=== PATIENT | female | born 1955 | race Caucasian/White ===

== ENCOUNTER 2020-10-07 09:31 | Inpatient (IN) | payer MEDICARE, OTHER ==
[~2020-10-07] VITALS: Ht 162.6 cm; Wt 127.2 kg
[2020-10-07] MEDS ORDERED: VITAMIN B-121000 MCG PO (10:07)
[2020-10-07] MEDS ORDERED: LEVOTHYROXINE25 MCG PO (10:07)
[2020-10-07] MEDS ORDERED: CERTAVITE SR-A1 EACH PO (10:08)
[2020-10-07] MEDS ORDERED: LISINOPRIL20 MG PO (10:08)
[2020-10-07] MEDS ORDERED: VITAMIN D-40010 MCG PO (10:09)
[2020-10-07] MEDS ORDERED: [UNRECOGNIZED DRUG - OTHER] TOP (10:10)
[2020-10-07] MEDS ORDERED: CLOZAPINE25 MG PO (10:10)
[2020-10-07] MEDS ORDERED: ATENOLOL50 MG PO (10:10)
[2020-10-07] MEDS ORDERED: GEMFIBROZIL600 MG PO (10:11)
[2020-10-07] MEDS ORDERED: METFORMIN HCL1000 MG PO (10:12)
[2020-10-07] MEDS ORDERED: NON-ASPIRIN PA325 MG PO (10:12)
[2020-10-07] MEDS ORDERED: VENTOLIN HFA18 GM INH (10:12)
[2020-10-07] MEDS ORDERED: METAMUCIL660 GM PO (10:12)
[2020-10-07] MEDS ORDERED: MILK OF MA400 MG/5 M PO (10:12)
[2020-10-07] MEDS ORDERED: TRIAMCINOLONE A15 G1 TOP (10:13)
[2020-10-07] MEDS ORDERED: GERI-KOT8.6 MG PO (10:13)
[2020-10-07] MEDS ORDERED: SYMBICORT 16010.2 GM INH (10:14)
[2020-10-07] MEDS ORDERED: BANOPHEN50 MG PO (10:14)
--- NOTE | 2020-10-07 15:37 | NUR ---
PT ARRIVED TO FLOOR VIA STRETCHER. PT ABLE TO TRANSFER TO BED INDEPENDENTLY. VITALS TAKEN AND STABLE. PT ON 2L NC. RR 18. SKIN ASSESSMENT COMPLETED. NO SKIN BREAKDOWN NOTED. FLORENCE ARE IS SLIGHTLY READ BUT VERY CLEAN. PT CAME IN WITH BLAYNE TO [facility]. TEDHOSE REMOVED TO ASSESS SKIN. TRACE EDEMA NOTED. LUNGS DIM AND DISTANT. HEART SOUNDS REGULAR. FACILITY PRACTICE SPECIALIST AT BEDSIDE. NS AT 75ML/HR STARTED. ORIENTED TO ROOM AND LATE LUNCH ORDERED. CALL LIGHT IN REACH. DENIES NEEDS.
--- NOTE | 2020-10-07 18:17 | NUR ---
ROUNDED ON PT. PT IN BED. 2L NC IN PLACE. CAREGIVER AT BEDSIDE. FLORENTIN YUNG FROM PTS HOME CALLED FOR UPDATE. PHONE NUMBER [phone] UPDATE PROVIDED ON PNEUMONIA, PLAN FOR TREATMENT AND PT CONDITION.
--- NOTE | 2020-10-07 23:09 | NUR ---
IN TO CHECK TELE LEADS, ALL IN PLACE AT THIS TIME, PT ASKING FOR PAIN RELIEF, RN INFORMED
--- NOTE | 2020-10-07 23:28 | NUR ---
Teesalon arcenio 100mg po and tylenol 650mg po admin for reports of cough/ pain.
--- NOTE | 2020-10-08 04:00 | NUR ---
Patient resting, respirations even and non labored. CPAP INTACT. Patient has no distress. Personal supplies and call light within reach.
--- NOTE | 2020-10-08 04:58 | NUR ---
Patient resting, eyes closed, respirations even and non labored. CPAP intact with 2L oxygen. Patient has no notable distress. Patient's facility sitter at bedside. No needs at this time.
--- NOTE | 2020-10-08 08:30 | NUR ---
REPORT RECEIVED FROM NIGHT RN AND PT. CARE RESUMED. PT. IS DROWSY, BUT EASILY AROUSED AND ORIENTED. SHE HAS A PRODUCTIVE COUGH. EXP. WHEEZES THROUGHOUT LUNGS. TRACE EDEMA PRESENT BLE. IV SITE WNL AND FLUSHES WELL. PT. LEFT RESTING WITH CALL LIGHT IN REACH.
--- NOTE | 2020-10-08 09:25 | NUR ---
Telemetry alarming asystole. Upon entering room, patient sitting on edge of bed, alert and oriented. 2 telemetry leads disconnected. Telemetry leads reapplied. Denies further needs at this time. PT in room to work with patient.
--- NOTE | 2020-10-08 09:38 | NUR ---
PT HAD A ORDER FOR OUTSIDE COVID TESTING , SHE HAD TESTING YESTERDAY AND IS CURRENTLY INPATIENT
[2020-10-08] MEDS ORDERED: FISH OIL 1,0001 EAC2 PO (10:02)
[2020-10-08] MEDS ORDERED: DOCUSATE SODIU250 MG PO (10:05)
[2020-10-08] MEDS ORDERED: NYSTATIN15 GM TOP (10:20)
--- NOTE | 2020-10-08 10:20 | NUR ---
Spoke with Gloria and her cg from the [facility]. She resides there and is able to walk down the hill for therapy. Other care such as meals and housekeeping is provided for Gloria. Pt plans on returning to the [facility] on discharge. Nursing phone number: [phone] CG with pt is
[2020-10-08] MEDS ORDERED: ICY HOT CREAM35.4 GM TOP (10:32)
[2020-10-08] MEDS ORDERED: MAALOX ADVANCE355 ML PO (10:35)
[2020-10-08] MEDS ORDERED: GOLD BOND MEDI113 G2 TOP (10:37)
[2020-10-08] MEDS ORDERED: HALLS3.2 MG MM (10:39)
[2020-10-08] MEDS ORDERED: EAR WAX REMOVAL15 ML OTIC (10:42)
[2020-10-08] MEDS ORDERED: IBU-200200 MG PO (10:44)
[2020-10-08] MEDS ORDERED: GERI-TUSSI100 MG/5 M PO (10:48)
--- NOTE | 2020-10-08 10:48 | NUR ---
MED REC COMPLETE
--- NOTE | 2020-10-08 12:45 | NUR ---
ROUNDING ON PT. SHE IS SLEEPING AT THIS TIME AND BREATHING IS UNLABORED. DAVI CARD STAFF PERSON IN THE ROOM.
--- NOTE | 2020-10-08 16:16 | NUR ---
PT. USED CALL LIGHT APPROPRIATELY FOR BEEPING IV. ABX COMPLETED AND IVF RESTARTED. PT. GIVEN FRESH WATER AND LEFT RESTING WITH CAREGIVER AT BEDSIDE.
--- NOTE | 2020-10-08 18:12 | NUR ---
02 TITRATED TO 1L NC. IVF DC'D PER ORDER. SBA TO BATHROOM. PT. TOLERATED WELL.
--- NOTE | 2020-10-08 18:40 | NUR ---
PT ASSISTED WITH SETTING UP FOR SHOWER. DISCUSSED SAFETY AND GIVEN A SHOWER CHAIR. CAREGIVER ASSISTING WITH SHOWER.
--- NOTE | 2020-10-08 19:20 | NUR ---
RECEIVED REPORT FROM AGA JONES. pt RESTING IN BED. MAGNETOMETER OPERATOR AT BEDSIDE. WHITEBOARD UPDATED. NO REQUESTS AT THIS TIME. CALL LIGHT WITHIN REACH.
--- NOTE | 2020-10-08 21:00 | NUR ---
HEALTH CARE RECRUITER IN ROOM TO DO VITALS.
--- NOTE | 2020-10-08 22:02 | NUR ---
IN TO DO ASSESSMENT. pt RESTING IN BED, PRONED. REPORTED A COUGH, PRN GIVEN WITH SCHEDULED MEDICATION. HOME CPAP IN PLACE. CAREGIVER AT BEDSIDE. ASSESSMENT DONE. CALL LIGHT WITHIN REACH.
--- NOTE | 2020-10-09 00:42 | NUR ---
ROUNDED ON pt. PRONING WITH HOME CPAP IN PLACE, SPOT CHECKED O2 LEVEL HIGH 80'S. CALLED RT ADAPTER FOR CPAP PLACED, 1L BLEED IN, SAT NOW MID 90'S. CALL LIGHT WITHIN REACH. CAREGIVER AT BEDSIDE. pt UP TO VOID. INCONT OF STOOL, LIQUID. CLEANED AND BACK TO BED.
--- NOTE | 2020-10-09 03:50 | NUR ---
CAREGIVERS CHANGED OUT. pt CONTINUES TO PRONE WITH CPAP IN PLACE. CALL LIGHT WITHIN REACH. CAREGIVER AT BEDSIDE.
--- NOTE | 2020-10-09 06:54 | NUR ---
WOKE pt FOR ASSESSMENT. ON 1.5L O2 VIA CPAP SATS MID 90'S. ASSESSMENT UNCHANGED. CAREGIVER AT BEDSIDE. CALL LIGHT WITHIN REACH.
--- NOTE | 2020-10-09 08:30 | NUR ---
Per [id number] meeting pt will dc to [facility] today.
--- NOTE | 2020-10-09 09:00 | NUR ---
REPORT RECEIVED FROM NIGHT RN AND PT. CARE RESUMED. PT. IS DROWSY BUT EASILY AROUSED. ORIENTED TO ALL AND FLAT AFFECT. PT. DENIES PAIN AND STATES SHE SLEPT WELL. EXP. WHEEZES THROUGHOUT LUNGS. PT. ON 1L 02 NC AND O2 SAT IS 91%. ENCOURAGED PATIENT TO SIT UP IN THE CHAIR BUT SHE REFUSED. CAREGIVER AT BEDSIDE. IV SITE WNL AND FLUSHES WELL. DISCUSSED POC AND MEDS. LEFT RESTING WITH CALL LIGHT IN REACH.
--- NOTE | 2020-10-09 09:00 | NUR ---
Called and spoke with Marissa YUNG. She request hard script be sent to them and not to [facility], also requests no orders for a walker as they will walk pt. Note left for Dr. Loomis.
[2020-10-09] MEDS ORDERED: CEFPODOXIME PR200 MG PO (12:03)
--- NOTE | 2020-10-09 13:05 | NUR ---
ALL DISCHARGE INSTRUCTIONS REVIEWED AND QUESTIONS ANSWERED. IV REMOVED WITH CATH INTACT. VITALS STABLE AND ON RA. PT. LEFT VIA WHEELCHAIR WITH ALL BELONGINGS WITH CAREGIVER AND SLACKLINE OPERATOR.
== END 2020-10-09 13:05 | disposition home or self-care (01) | DRG 193 ==
LOC: ED 09:31 → MS 13:52
PROVIDERS: ADMIT Internal Medicine; ATTEND Internal Medicine
DX: J15.4 Pneumonia due to other streptococci (principal); J96.01 Acute respiratory failure with hypoxia; J44.0 Chronic obstructive pulmonary disease with (acute) lower respiratory infection; Z20.822 Contact with and (suspected) exposure to COVID-19; D64.89 Other specified anemias; G47.33 Obstructive sleep apnea (adult) (pediatric); I10 Essential (primary) hypertension; E11.9 Type 2 diabetes mellitus without complications; F20.9 Schizophrenia, unspecified; E03.9 Hypothyroidism, unspecified; E78.5 Hyperlipidemia, unspecified; Z79.84 Long term (current) use of oral hypoglycemic drugs; Z79.899 Other long term (current) drug therapy
CPT/HCPCS: 71045; 80048; 80053; 85025; 94640; 94760; 94761; 96365; 96375; 97116; 97162; 97166; 99285-25; C9803; J0456; J0696; J1650; J1815; J2405; J7030; J7040; J7060; U0003

== ENCOUNTER 2021-01-24 13:39 | Emergency (ER) | payer MEDICARE, OTHER ==
[~2021-01-24] VITALS: Ht 162.6 cm; Wt 130.2 kg
[~2021-01-24 13:39] MED LIST: ATENOLOL50 MG PO; BANOPHEN50 MG PO; CEFPODOXIME PR200 MG PO; CERTAVITE SR-A1 EACH PO; CLOZAPINE25 MG PO; DOCUSATE SODIU250 MG PO; EAR WAX REMOVAL15 ML OTIC; FISH OIL 1,0001 EAC2 PO; GEMFIBROZIL600 MG PO; GERI-KOT8.6 MG PO; GERI-TUSSI100 MG/5 M PO; GOLD BOND MEDI113 G2 TOP; HALLS3.2 MG MM; IBU-200200 MG PO; ICY HOT CREAM35.4 GM TOP; LEVOTHYROXINE25 MCG PO; LISINOPRIL20 MG PO; MAALOX ADVANCE355 ML PO; METAMUCIL660 GM PO; METFORMIN HCL1000 MG PO; MILK OF MA400 MG/5 M PO; NON-ASPIRIN PA325 MG PO; NYSTATIN15 GM TOP; SYMBICORT 16010.2 GM INH; TRIAMCINOLONE A15 G1 TOP; VENTOLIN HFA18 GM INH; VITAMIN B-121000 MCG PO; VITAMIN D-40010 MCG PO; [UNRECOGNIZED DRUG - OTHER] TOP
[2021-01-24] MEDS ORDERED: VENTOLIN HFA18 GM INH (16:44)
[2021-01-24] MEDS ORDERED: PREDNISONE20 MG PO (16:44)
[2021-01-24] MEDS ORDERED: AUGMENTIN 875-1 EACH PO (16:44)
--- NOTE | 2021-01-24 17:16 | EKG ---
[facility] [address] [facility] [place] [address] Signed Normal sinus rhythm Normal ECG No previous ECGs available Confirmed by NAY HEDRICK MD ([id number]) on 01/24/2021 5:16:48 PM Electronically Signed By: NAY HEDRICK MD 01/24/21 1716 PATIENT NAME: MARIAMA SALEEM Electrocardiogram DATE OF : 51 PHYSICIAN: NAY HEDRICK MD REPORT #: [id number] REPORT IS CONFIDENTIAL AND NOT TO BE RELEASED WITHOUT AUTHORIZATION
== END 2021-01-24 17:01 | disposition home or self-care (01) ==
LOC: ED 13:39
DX: J20.5 Acute bronchitis due to respiratory syncytial virus (principal); Z20.822 Contact with and (suspected) exposure to COVID-19; J44.9 Chronic obstructive pulmonary disease, unspecified; E03.9 Hypothyroidism, unspecified; I10 Essential (primary) hypertension; E11.9 Type 2 diabetes mellitus without complications; G47.30 Sleep apnea, unspecified; Z79.899 Other long term (current) drug therapy; Z79.84 Long term (current) use of oral hypoglycemic drugs
CPT/HCPCS: 71045; 80053; 83735; 84484; 85025; 93005; 93010; 94640; 99285-25; C9803; U0003

== ENCOUNTER 2024-10-07 06:46 | Emergency (ER) | payer MEDICARE, OTHER ==
[~2024-10-07] VITALS: Ht 162.6 cm; Wt 121.0 kg
[~2024-10-07 06:46] MED LIST changes: +AUGMENTIN 875-1 EACH PO; +PREDNISONE20 MG PO
[2024-10-07] MEDS ORDERED: SODIUM CHLORIDE 0.9% 1,000 ML IV ONE (07:15)
[2024-10-07 07:25] LABS: BASOPHILS 0.1 % (0.1-1.2); EOSINOPHILS 0 % (0.7-5.8); LYMPHOCYTES 16.9 % (19.3-51.7); MCH 31.3 PG (25.6-32.2); MCHC 33.3 g/dL (32.2-35.5); MCV 93.8 fL (79.4-94.8); MONOCYTES 13.1 % (4.7-12.5); NEUTROPHILS 69.2 % (34.0-71.1); RBC 3.71 M/uL (3.93-5.22)
[2024-10-07 07:43] LABS: LACTIC ACID, BLOOD 1.2 mmol/L (0.4-2.0)
[2024-10-07 07:44] LABS: ALT (SGPT) 23.0 U/L (14-59); AST (SGOT) 22.0 U/L (15-37); GLOMERULAR FILTRATION RATE,EST 50.0 mL/min (>60); PROTEIN, TOTAL 8.5 g/dL (6.4-8.2); UREA NITROGEN 20.0 mg/dL (7-18)
[2024-10-07 07:44] LABS: BLOOD/HGB, URINE TRACE-L (Negative); KETONE, URINE NEGATIVE (Negative); LEUK ESTERASE, URINE NEGATIVE (negative); NITRITE, URINE NEGATIVE (negative)
[2024-10-07 07:52] LABS: EPITHELIAL CELLS, URINE 0 /lpf (0-1+)
[2024-10-07 07:53] LABS: BACTERIA, URINE RARE /hpf (negative); CASTS, URINE NONE SEEN \\lpf; CRYSTALS, URINE NONE SEEN (0-1+); REFLEX CULTURE, URINE Yes (No)
[2024-10-07] MEDS ORDERED: METFORMIN HCL500 MG PO (08:18)
[2024-10-07] MEDS ORDERED: VASCEPA1 GM PO (08:19)
[2024-10-07] MEDS ORDERED: SENNA8.6 MG PO (08:19)
[2024-10-07] MEDS ORDERED: GABAPENTIN300 MG PO (08:20)
[2024-10-07] MEDS ORDERED: BREO ELLIPTA I1 EACH INH (08:20)
[2024-10-07] MEDS ORDERED: INCRUSE ELLI62.5 MCG INH (08:21)
[2024-10-07 08:36] LABS: INFLUENZA B NAA NEGATIVE (NEGATIVE); RESPIRATORY SYNCYTIAL VIR NAA NEGATIVE (NEGATIVE)
[2024-10-07] MEDS ORDERED: ACETAMINOPHEN 500 MG TAB PO ONE (09:00)
[2024-10-07] MEDS ORDERED: CEFDINIR300 MG PO (09:40)
--- NOTE | 2024-10-07 09:48 | EKG ---
[facility] [address] [facility] [place] [address] Signed Normal sinus rhythm Normal ECG When compared with ECG of 24-JAN-2021 14:55, No significant change was found Confirmed by Dee Acevedo MD ([id number]) on 10/07/2024 9:48:24 AM Electronically Signed By: DEE ACEVEDO MD 10/07/24 0948 PATIENT NAME: MARIAMA SALEEM Electrocardiogram DATE OF : 51 PHYSICIAN: DEE ACEVEDO MD REPORT #: [id number] REPORT IS CONFIDENTIAL AND NOT TO BE RELEASED WITHOUT AUTHORIZATION
[2024-10-07 10:11] VITALS: BP 123/58
== END 2024-10-07 10:11 | disposition home or self-care (01) ==
LOC: ED 06:46
PROVIDERS: Emergency Medicine
DX: N39.0 Urinary tract infection, site not specified (principal); S93.402A Sprain of unspecified ligament of left ankle, initial encounter; S80.02XA Contusion of left knee, initial encounter; S80.01XA Contusion of right knee, initial encounter; J44.9 Chronic obstructive pulmonary disease, unspecified; E03.9 Hypothyroidism, unspecified; I10 Essential (primary) hypertension; E11.9 Type 2 diabetes mellitus without complications; G47.30 Sleep apnea, unspecified; Z79.84 Long term (current) use of oral hypoglycemic drugs; Z79.890 Hormone replacement therapy; Z79.899 Other long term (current) drug therapy; W19.XXXA Unspecified fall, initial encounter
CPT/HCPCS: 36415; 51701; 71045; 73610; 80053; 81001; 83605; 84484; 85025; 87088; 87502; 93005; 93010; 96365; 96375; 99284-25; A9270; J0696; J2405; J7030; U0002